=== PATIENT | female | born 1955 | race African-American/Black ===

== ENCOUNTER 2023-06-28 00:35 | Emergency (ER) | payer MEDICAID ==
[~2023-06-28] VITALS: Ht 170.2 cm; Wt 113.0 kg
[~2023-06-28 00:35] MED LIST: FLEC100T2 PO; METO25TA6 PO; RIVA20TA PO
[2023-06-28] MEDS ORDERED: ACETAMINOPHEN 325MG TABLET PO ONE (01:00)
[2023-06-28 01:02] VITALS: BP 164/99; PULSE 67; RESP 14; TEMP 98; O2SAT 98
[2023-06-28 01:06] LABS: BASOPHILS % 0.8 % (0.0-2.0); EOSINOPHILS % 3.8 % (0.0-5.0); HEMATOCRIT. 42.5 % (36.0-48.0); HEMOGLOBIN. 14.1 g/dL (12.0-16.0); LYMPHOCYTES % 44.4 % (20.0-50.0); MEAN CORPUSCULAR HEMOGLOBIN 28.5 pg (28.0-32.0); MEAN CORPUSCULAR HGB CONC 33.2 g/dL (31.0-37.0); MEAN CORPUSCULAR VOLUME 85.9 fL (81.0-99.0); MEAN PLATELET VOLUME 9.1 fl (7.4-10.4); MONOCYTES % 9.9 % (2.0-8.0); NEUTROPHILS % 41.1 % (40.0-76.0); PLATELET 175 x1000/uL (130-400); RED BLOOD CELL COUNT 4.95 mill/uL (4.2-5.4); RED CELL DISTRIBUTION WIDTH 13.3 % (11.6-14.6); WHITE BLOOD COUNT 6.3 x1000/uL (4.5-11.0)
[2023-06-28 01:31] LABS: ALANINE AMINOTRANSFERASE 13 IU/L (10-49); ALBUMIN 4.3 g/dL (3.2-4.8); ASPARTATE AMINOTRANSFERASE 14 IU/L (<34); BILIRUBIN TOTAL 0.7 mg/dL (0.1-1.0); CALCIUM 9.4 mg/dL (8.7-10.4); CARBON DIOXIDE 27 mEq/L (21-32); CHLORIDE 105 mEq/L (98-107); CREATININE 0.9 mg/dL (0.6-1.0); GLUCOSE 109 mg/dL (70-105); POTASSIUM 3.8 mEq/L (3.5-5.1); PROTEIN TOTAL 7.6 g/dL (6.0-8.3); SODIUM 139 mEq/L (136-145); TROPONIN I HIGH SENSITIVITY 4 ng/L (3.0-34); UREA NITROGEN BLOOD 13 mg/dL (9-23)
[2023-06-28 01:37] LABS: ETHANOL BLOOD < 10 mg/dL (<10)
[2023-06-28 01:39] LABS: INR 1.2; PARTIAL THROMBOPLASTIN TIME 36.4 sec (23.4-31.0); PROTHROMBIN TIME 13.7 sec (9.6-11.0)
== END 2023-06-28 07:53 | disposition home or self-care (01) ==
LOC: ER 00:35
DX: F41.0 Panic disorder [episodic paroxysmal anxiety] (principal); I10 Essential (primary) hypertension; E11.9 Type 2 diabetes mellitus without complications; F17.200 Nicotine dependence, unspecified, uncomplicated
CPT/HCPCS: 36415; 71045; 80053; 80320; 83880; 84484; 85025; 93005; 99285; G0480

== ENCOUNTER 2024-08-06 06:54 | Emergency (ER) | payer MEDICAID ==
[~2024-08-06] VITALS: Ht 182.9 cm; Wt 118.0 kg
[2024-08-06 07:07] VITALS: O2SAT 99
[2024-08-06] MEDS ORDERED: NITROGLYCERIN 0.4MG TABLET SL SL PRN (07:45)
[2024-08-06] MEDS: ASPIRIN 81MG TABLET PO ONE (08:05)
[2024-08-06 08:17] LABS: BASOPHILS % 1.2 % (0.0-2.0); EOSINOPHILS % 3.9 % (0.0-5.0); HEMATOCRIT. 40.6 % (36.0-48.0); HEMOGLOBIN. 13.2 g/dL (12.0-16.0); LYMPHOCYTES % 37.2 % (20.0-50.0); MEAN CORPUSCULAR HEMOGLOBIN 28.1 pg (28.0-32.0); MEAN CORPUSCULAR HGB CONC 32.6 g/dL (31.0-37.0); MEAN CORPUSCULAR VOLUME 86.1 fL (81.0-99.0); MEAN PLATELET VOLUME 8.8 fl (7.4-10.4); MONOCYTES % 9.1 % (2.0-8.0); NEUTROPHILS % 48.6 % (40.0-76.0); PLATELET 185 x1000/uL (130-400); RED BLOOD CELL COUNT 4.71 mill/uL (4.2-5.4); RED CELL DISTRIBUTION WIDTH 13.5 % (11.6-14.6); WHITE BLOOD COUNT 4.8 x1000/uL (4.5-11.0)
[2024-08-06 08:26] LABS: CHLORIDE 104 mEq/L (98-107); POTASSIUM 4.3 mEq/L (3.5-5.1); SODIUM 141 mEq/L (136-145)
[2024-08-06 08:27] LABS: CARBON DIOXIDE 31 mEq/L (21-32)
[2024-08-06 08:28] LABS: CALCIUM 9.2 mg/dL (8.7-10.4)
[2024-08-06 08:32] LABS: CREATININE 0.8 mg/dL (0.6-1.0); GLUCOSE 115 mg/dL (70-105); UREA NITROGEN BLOOD 12 mg/dL (9-23)
[2024-08-06 08:51] LABS: TROPONIN I HIGH SENSITIVITY < 4 ng/L (3.0-34)
[2024-08-06 10:17] VITALS: BP 138/81; PULSE 69; RESP 18; TEMP 36.8; O2SAT 99
[2024-08-06 10:44] LABS: TROPONIN I HIGH SENSITIVITY < 4 ng/L (3.0-34)
== END 2024-08-06 10:44 | disposition home or self-care (01) ==
LOC: ER 06:54
DX: R07.89 Other chest pain (principal); I10 Essential (primary) hypertension; Z79.01 Long term (current) use of anticoagulants; Z79.899 Other long term (current) drug therapy; Z98.890 Other specified postprocedural states
CPT/HCPCS: 80048; 83880; 85025; 84484; 36415; 71045; 93005; 99285; Z7610